=== PATIENT | female | born 1945 | race Caucasian/White ===

== ENCOUNTER 2020-09-18 18:41 | Emergency (ER) | payer OTHER ==
[~2020-09-18 18:41] MED LIST: OMNICEF 300 MG300 MG PO
[2020-09-18 20:01] LABS: HEMOGLOBIN 9.2 gm/dl (12.3-15.3); RED BLOOD COUNT 3.24 M/UL (4.00-5.10); WHITE BLOOD COUNT 10.4 K/UL (4.5-11.0)
== END 2020-09-18 21:19 | disposition home or self-care (01) ==
LOC: ER1 18:41
PROVIDERS: Physician Assistant
DX: S51.812A Laceration without foreign body of left forearm, initial encounter (principal); S16.1XXA Strain of muscle, fascia and tendon at neck level, initial encounter; S70.02XA Contusion of left hip, initial encounter; S00.93XA Contusion of unspecified part of head, initial encounter; W20.8XXA Other cause of strike by thrown, projected or falling object, initial encounter; Y92.009 Unspecified place in unspecified non-institutional (private) residence as the place of occurrence of the external cause
CPT/HCPCS: 70450; 71045; 72125; 73502; 80048; 82550; 82553; 83874; 84484; 85025; 93005; 96374; 99285; J2405

== ENCOUNTER → 2021-10-22 | Outpatient (CLI) | payer OTHER | LOC: KOH-I 15:44 | DX: J18.1 Lobar pneumonia, unspecified organism (principal); N18.32 Chronic kidney disease, stage 3b; J43.9 Emphysema, unspecified; J90 Pleural effusion, not elsewhere classified; J98.11 Atelectasis | CPT/HCPCS: 71250 ==